=== PATIENT | female | born 1940 | race Two or more races ===

== ENCOUNTER 2023-03-04 17:56 | Inpatient (IN) | payer OTHER ==
[2023-03-04] MEDS ORDERED: SODIUM CHLORIDE 2,381 ML IV ONE (19:54)
[2023-03-04] MEDS ORDERED: SODIUM CHLORIDE 0.9% 500 ML INFUS.BAG IV ONE (20:30)
[2023-03-04 21:14] LABS: VENOUS BASE EXCESS 4.3 mmol/L (-2-2); VENOUS O2 SATURATION 27.4 % (70-80); VENOUS PH 7.417 (7.310-7.410)
[2023-03-04 21:21] LABS: BASO % 0.2 % (0-2.0); HEMATOCRIT 35.5 % (32.4-45.2); HEMOGLOBIN 12.1 GM/dL (10.7-15.3); LYMPH % 4.6 % (8-40); MCH 29.9 pg (25.7-33.7); MCHC 34.1 g/dl (32.0-36.0); MEAN CELL VOLUME 87.5 fl (80-96); MEAN PLT VOLUME 8.1 fl (7.5-11.1); MONO % 6.2 % (3.8-10.2); PLATELET COUNT 462 10^3/uL (134-434); RBC 4.06 M/mm3 (3.60-5.2); RDW 14.5 % (11.6-15.6); WHITE BLOOD COUNT 22.3 K/mm3 (4.0-10.0)
[2023-03-04 21:27] LABS: INR 1.18 (0.83-1.09); PROTHROMBIN TIME (PATIENT) 13.7 SEC (9.7-13.0)
[2023-03-04] MEDS ORDERED: VANCOMYCIN 1,000 MG in DEXTROSE 5%-WATER - 250 ML IVPB ONE (21:28)
[2023-03-04] MEDS ORDERED: PIPERACILLIN/TAZOB 4.5 GM 4.5 GM in DEXTROSE 5%-WATER 100 ML IVPB ONE (21:28)
[2023-03-04 21:29] LABS: ACTIVATED PTT 24.6 SECONDS (25.2-36.5)
[2023-03-04 21:40] LABS: POTASSIUM 5.6 mmol/L (3.5-5.1)
[2023-03-04 21:42] LABS: CALCIUM 7.5 mg/dL (8.5-10.1)
[2023-03-04 21:43] LABS: ALBUMIN 2.1 g/dl (3.4-5.0); BLOOD UREA NITROGEN 22.8 mg/dL (7-18)
[2023-03-04 21:46] LABS: CREATININE 1.1 mg/dL (0.55-1.3)
[2023-03-04 21:47] LABS: BILIRUBIN,TOTAL 1.2 mg/dL (0.2-1); TOT PROT 5.8 g/dl (6.4-8.2)
[2023-03-04 21:49] LABS: EPI CELLS 36 /uL (0-25.1); HYALINE CASTS 5 /uL (0-3.1); PH,URINE 5.5 (5.0-8.0); URINE APPEARANCE CLEAR; URINE BACTERIA 6 /uL (0-1359); URINE BILIRUBIN NEGATIVE (NEGATIVE); URINE COLOR YELLOW; URINE GLUCOSE (UA) NEGATIVE (NEGATIVE); URINE KETONE TRACE (NEGATIVE); URINE LEUK ESTERASE NEGATIVE (NEGATIVE); URINE NITRITE NEGATIVE (NEGATIVE); URINE PROTEIN 2+ (NEGATIVE); URINE RBC 34 /uL (0-23.9); URINE WBC 15 /uL (0-25.8)
[2023-03-04 22:15] LABS: ANISOCYTOSIS 1+; MACROCYTOSIS 0; OVALOCYTE 1+
[2023-03-04] MEDS ORDERED: PIPERACILLIN/TAZOB 4.5 GM 4.5 GM/100 ML BAG IVPB ONE (22:47)
[2023-03-04] MEDS ORDERED: VANCOMYCIN 1 GRAM (PRE-DOCKED) 1,000 MG/250 ML BAG IVPB ONE (23:53)
[2023-03-05 02:45] LABS: CHLORIDE 104 mmol/L (98-107); POTASSIUM 4.9 mmol/L (3.5-5.1); SODIUM 136 mmol/L (136-145)
[2023-03-05 02:47] LABS: ANION GAP 8 mmol/L (4-13); BLOOD UREA NITROGEN 18.5 mg/dL (7-18); CO2 24 mmol/L (21-32); GLUCOSE,RANDOM 98 mg/dL (74-106)
[2023-03-05 02:50] LABS: CREATININE 0.8 mg/dL (0.55-1.3)
[2023-03-05 02:53] LABS: CALCIUM 6.9 mg/dL (8.5-10.1)
[2023-03-05] MEDS: CARBIDOPA/LEVODOPA 25/100 TABLET (FP) PO SCH ×4 (06:50→21:58)
[2023-03-05] MEDS: SODIUM CHLORIDE 1,000 ML IV SCH (06:50)
[2023-03-05] MEDS ORDERED: PATIENT'S OWN MEDICATION (NON-FORMULARY) (Linaclotide [Linzess] 145 MCG Capsule) PO SCH (07:00)
[2023-03-05] MEDS ORDERED: PIPERACILLIN/TAZOB 3.375 GM 3.375 GM in DEXTROSE 5%-WATER - 50 ML IVPB SCH ×2 (08:00→10:00)
[2023-03-05 08:37] LABS: HEMOGLOBIN 11.3 GM/dL (10.7-15.3); MCH 29.7 pg (25.7-33.7); MCHC 33.3 g/dl (32.0-36.0); MEAN CELL VOLUME 89.3 fl (80-96); MEAN PLT VOLUME 7.9 fl (7.5-11.1); PLATELET COUNT 437 10^3/uL (134-434); RBC 3.81 M/mm3 (3.60-5.2); RDW 14.1 % (11.6-15.6); WHITE BLOOD COUNT 21.3 K/mm3 (4.0-10.0)
[2023-03-05 08:46] LABS: POTASSIUM 4.1 mmol/L (3.5-5.1)
[2023-03-05 08:47] VITALS: BMI 20.1
[2023-03-05 08:58] LABS: ALBUMIN 1.9 g/dl (3.4-5.0); BLOOD UREA NITROGEN 17.2 mg/dL (7-18); CALCIUM 7.3 mg/dL (8.5-10.1); MAGNESIUM 2.6 mg/dL (1.8-2.4)
[2023-03-05 09:01] LABS: CREATININE 0.8 mg/dL (0.55-1.3); PHOSPHOROUS 2.7 mg/dL (2.5-4.9)
[2023-03-05 09:02] LABS: BILIRUBIN,DIRECT 0.7 mg/dL (0.0-0.2)
[2023-03-05 09:03] LABS: BILIRUBIN,TOTAL 1.6 mg/dL (0.2-1)
[2023-03-05] MEDS: OSELTAMIVIR PHOSPHATE 75 MG CAPSULE PO SCH ×2 (10:41→23:09)
[2023-03-05] MEDS: VANCOMYCIN/WATER FOR INJ (PEG) 1,000 MG/200 ML BAG IVPB SCH (13:45)
[2023-03-05] MEDS: ALBUTEROL SO4 2.5/IPRATROPIUM 0.5 INH SOL 3 ML VIAL.NEB. NEB SCH ×2 (15:21→20:22)
[2023-03-05] MEDS: methylPREDNISolone NA SUCC 40 MG/1 ML VIAL IVPUSH SCH (16:10)
[2023-03-05] MEDS: PIPERACILLIN/TAZOB 3.375 GM 3.375 GM in DEXTROSE 5%-WATER - 50 ML IVPB SCH (17:40)
[2023-03-05] MEDS: QUEtiapine FUMARATE 25 MG TABLET PO SCH (21:58)
[2023-03-05] MEDS: DONEPEZIL HCL 10 MG TABLET (FP) PO SCH ×2 (21:58→22:01)
[2023-03-06] MEDS: PIPERACILLIN/TAZOB 3.375 GM 3.375 GM in DEXTROSE 5%-WATER - 50 ML IVPB SCH ×3 (01:58→17:26)
[2023-03-06] MEDS: SODIUM CHLORIDE 1,000 ML IV SCH ×2 (02:02→18:39)
[2023-03-06] MEDS: VANCOMYCIN/WATER FOR INJ (PEG) 1,000 MG/200 ML BAG IVPB SCH ×2 (02:47→13:09)
[2023-03-06] MEDS: CARBIDOPA/LEVODOPA 25/100 TABLET (FP) PO SCH ×3 (05:35→21:30)
[2023-03-06] MEDS: ALBUTEROL SO4 2.5/IPRATROPIUM 0.5 INH SOL 3 ML VIAL.NEB. NEB SCH ×5 (07:40→19:53)
[2023-03-06] MEDS: methylPREDNISolone NA SUCC 40 MG/1 ML VIAL IVPUSH SCH (09:25)
[2023-03-06] MEDS: OSELTAMIVIR PHOSPHATE 75 MG CAPSULE PO SCH ×2 (09:27→21:30)
[2023-03-06 10:32] LABS: HEMATOCRIT 32.9 % (32.4-45.2); HEMOGLOBIN 10.7 GM/dL (10.7-15.3); MCH 29.2 pg (25.7-33.7); MCHC 32.6 g/dl (32.0-36.0); MEAN CELL VOLUME 89.5 fl (80-96); MEAN PLT VOLUME 7.7 fl (7.5-11.1); PLATELET COUNT 451 10^3/uL (134-434); RBC 3.67 M/mm3 (3.60-5.2); RDW 14.4 % (11.6-15.6); WHITE BLOOD COUNT 16.9 K/mm3 (4.0-10.0)
[2023-03-06 11:14] LABS: ANISOCYTOSIS 0; MACROCYTOSIS 0
[2023-03-06 12:11] LABS: CALCIUM 7.5 mg/dL (8.5-10.1)
[2023-03-06 12:12] LABS: ALBUMIN 1.7 g/dl (3.4-5.0); BLOOD UREA NITROGEN 19.1 mg/dL (7-18); MAGNESIUM 2.7 mg/dL (1.8-2.4)
[2023-03-06 12:14] LABS: BILIRUBIN,TOTAL 1.7 mg/dL (0.2-1); CREATININE 0.8 mg/dL (0.55-1.3); PHOSPHOROUS 2.8 mg/dL (2.5-4.9); TOT PROT 4.8 g/dl (6.4-8.2)
[2023-03-06] MEDS: DEXTROSE 5%-0.45% SALINE 1,000 ML IV SCH (18:36)
[2023-03-06] MEDS: DONEPEZIL HCL 10 MG TABLET (FP) PO SCH (21:30)
[2023-03-06] MEDS: QUEtiapine FUMARATE 25 MG TABLET PO SCH (21:30)
[2023-03-07] MEDS: PIPERACILLIN/TAZOB 3.375 GM 3.375 GM in DEXTROSE 5%-WATER - 50 ML IVPB SCH ×3 (01:21→17:18)
[2023-03-07] MEDS: VANCOMYCIN/WATER FOR INJ (PEG) 1,000 MG/200 ML BAG IVPB SCH ×2 (02:09→15:16)
[2023-03-07] MEDS: CARBIDOPA/LEVODOPA 25/100 TABLET (FP) PO SCH ×3 (06:29→22:41)
[2023-03-07] MEDS: ALBUTEROL SO4 2.5/IPRATROPIUM 0.5 INH SOL 3 ML VIAL.NEB. NEB SCH ×4 (07:25→21:03)
[2023-03-07] MEDS: OSELTAMIVIR PHOSPHATE 75 MG CAPSULE PO SCH ×2 (09:29→22:41)
[2023-03-07] MEDS: methylPREDNISolone NA SUCC 40 MG/1 ML VIAL IVPUSH SCH (09:29)
[2023-03-07] MEDS ORDERED: ALBUTEROL SO4 2.5/IPRATROPIUM 0.5 INH SOL 3 ML VIAL.NEB. NEB ONE (11:15)
[2023-03-07] MEDS ORDERED: methylPREDNISolone NA SUCC 40 MG/1 ML VIAL IVPUSH ONE (11:30)
[2023-03-07] MEDS ORDERED: HALOPERIDOL LACTATE 5 MG/ML IM ONE (11:30)
[2023-03-07 12:53] LABS: ALLENS TEST POSITIVE; ARTERIAL BLD GAS O2 SATURATION 95.6 % (95-98); ARTERIAL BLOOD GAS BASE EXCESS -0.6 mmol/L (-2-2); ARTERIAL BLOOD GAS PO2 70.9 mmHg (80-100); ARTERIAL BLOOD GAS pH 7.487 (7.350-7.450)
[2023-03-07 14:39] LABS: HEMATOCRIT 32.8 % (32.4-45.2); HEMOGLOBIN 10.9 GM/dL (10.7-15.3); MCH 29.3 pg (25.7-33.7); MCHC 33.2 g/dl (32.0-36.0); MEAN CELL VOLUME 88.3 fl (80-96); MEAN PLT VOLUME 7.4 fl (7.5-11.1); PLATELET COUNT 550 10^3/uL (134-434); RBC 3.72 M/mm3 (3.60-5.2); WHITE BLOOD COUNT 20.7 K/mm3 (4.0-10.0)
[2023-03-07 14:57] LABS: POTASSIUM 4.2 mmol/L (3.5-5.1)
[2023-03-07 14:59] LABS: CALCIUM 7.7 mg/dL (8.5-10.1)
[2023-03-07 15:00] LABS: ALBUMIN 1.8 g/dl (3.4-5.0); BLOOD UREA NITROGEN 22.3 mg/dL (7-18)
[2023-03-07 15:02] LABS: BILIRUBIN,DIRECT 0.7 mg/dL (0.0-0.2)
[2023-03-07 15:03] LABS: CREATININE 0.9 mg/dL (0.55-1.3)
[2023-03-07 15:13] LABS: ANISOCYTOSIS 2+; MACROCYTOSIS 0; OVALOCYTE 2+
[2023-03-08] MEDS: PIPERACILLIN/TAZOB 3.375 GM 3.375 GM in DEXTROSE 5%-WATER - 50 ML IVPB SCH ×3 (01:19→18:38)
[2023-03-08] MEDS: DEXTROSE 5%-0.45% SALINE 1,000 ML IV SCH (01:20)
[2023-03-08] MEDS: CARBIDOPA/LEVODOPA 25/100 TABLET (FP) PO SCH ×3 (06:17→21:57)
[2023-03-08] MEDS: ACETAMINOPHEN 650 MG/20.3 ML ORAL SOLUTION (CUPS) PO PRN (06:26)
[2023-03-08] MEDS: ALBUTEROL SO4 2.5/IPRATROPIUM 0.5 INH SOL 3 ML VIAL.NEB. NEB SCH ×4 (07:26→20:14)
[2023-03-08] MEDS: OSELTAMIVIR PHOSPHATE 75 MG CAPSULE PO SCH ×2 (09:26→21:57)
[2023-03-08] MEDS: methylPREDNISolone NA SUCC 40 MG/1 ML VIAL IVPUSH SCH (09:27)
[2023-03-08] MEDS: VANCOMYCIN/WATER FOR INJ (PEG) 1,000 MG/200 ML BAG IVPB SCH (11:27)
[2023-03-09] MEDS: PIPERACILLIN/TAZOB 3.375 GM 3.375 GM in DEXTROSE 5%-WATER - 50 ML IVPB SCH ×3 (02:41→18:01)
[2023-03-09] MEDS: ALBUTEROL SO4 2.5/IPRATROPIUM 0.5 INH SOL 3 ML VIAL.NEB. NEB SCH ×4 (08:51→20:37)
[2023-03-09 10:04] LABS: HEMATOCRIT 33.4 % (32.4-45.2); HEMOGLOBIN 11.1 GM/dL (10.7-15.3); MCH 29.4 pg (25.7-33.7); MCHC 33.1 g/dl (32.0-36.0); MEAN CELL VOLUME 88.9 fl (80-96); MEAN PLT VOLUME 7.4 fl (7.5-11.1); PLATELET COUNT 498 10^3/uL (134-434); RBC 3.76 M/mm3 (3.60-5.2)
[2023-03-09] MEDS: OSELTAMIVIR PHOSPHATE 75 MG CAPSULE PO SCH ×2 (10:08→21:55)
[2023-03-09] MEDS: methylPREDNISolone NA SUCC 40 MG/1 ML VIAL IVPUSH SCH (10:08)
[2023-03-09] MEDS: ENOXAPARIN NA (PORCINE) 40 MG/0.4 ML DISP.SYRIN SQ SCH (10:08)
[2023-03-09 10:33] LABS: POTASSIUM 4.2 mmol/L (3.5-5.1)
[2023-03-09 10:45] LABS: BLOOD UREA NITROGEN 22.3 mg/dL (7-18); CALCIUM 8.2 mg/dL (8.5-10.1)
[2023-03-09 10:48] LABS: CREATININE 0.8 mg/dL (0.55-1.3)
[2023-03-09 10:49] LABS: TOT PROT 5.1 g/dl (6.4-8.2)
[2023-03-09] MEDS: VANCOMYCIN/WATER FOR INJ (PEG) 1,000 MG/200 ML BAG IVPB SCH (10:58)
[2023-03-09 11:07] LABS: ERYTHROCYTE SEDIMENTATION RATE 87 mm/hr (0-30)
[2023-03-09 11:22] LABS: ANISOCYTOSIS 1+; MACROCYTOSIS 0
[2023-03-09] MEDS: CARBIDOPA/LEVODOPA 25/100 TABLET (FP) PO SCH (22:01)
[2023-03-10] MEDS: PIPERACILLIN/TAZOB 3.375 GM 3.375 GM in DEXTROSE 5%-WATER - 50 ML IVPB SCH ×3 (01:36→17:44)
[2023-03-10] MEDS: CARBIDOPA/LEVODOPA 25/100 TABLET (FP) PO SCH ×5 (06:10→22:03)
[2023-03-10] MEDS: ALBUTEROL SO4 2.5/IPRATROPIUM 0.5 INH SOL 3 ML VIAL.NEB. NEB SCH ×2 (07:50→11:35)
[2023-03-10] MEDS: methylPREDNISolone NA SUCC 40 MG/1 ML VIAL IVPUSH SCH (09:56)
[2023-03-10] MEDS: ENOXAPARIN NA (PORCINE) 40 MG/0.4 ML DISP.SYRIN SQ SCH (09:56)
[2023-03-10 10:24] LABS: HEMATOCRIT 35.8 % (32.4-45.2); MCH 29.5 pg (25.7-33.7); MCHC 33.5 g/dl (32.0-36.0); MEAN CELL VOLUME 88.1 fl (80-96); MEAN PLT VOLUME 7.3 fl (7.5-11.1); PLATELET COUNT 459 10^3/uL (134-434); RBC 4.06 M/mm3 (3.60-5.2); RDW 14.4 % (11.6-15.6); WHITE BLOOD COUNT 21.5 K/mm3 (4.0-10.0)
[2023-03-10 10:52] LABS: POTASSIUM 4.4 mmol/L (3.5-5.1)
[2023-03-10 11:21] LABS: ALBUMIN 2.2 g/dl (3.4-5.0); CREATININE 0.9 mg/dL (0.55-1.3)
[2023-03-10 11:22] LABS: BILIRUBIN,TOTAL 1.2 mg/dL (0.2-1); MAGNESIUM 2.4 mg/dL (1.8-2.4); TOT PROT 5.4 g/dl (6.4-8.2)
[2023-03-10 11:23] LABS: CALCIUM 8.3 mg/dL (8.5-10.1)
[2023-03-10 11:24] LABS: PHOSPHOROUS 2.4 mg/dL (2.5-4.9)
[2023-03-10 11:37] LABS: ERYTHROCYTE SEDIMENTATION RATE 23 mm/hr (0-30)
[2023-03-10 12:18] LABS: ANISOCYTOSIS 2+; MACROCYTOSIS 0; OVALOCYTE 1+
[2023-03-10] MEDS: VANCOMYCIN/WATER FOR INJ (PEG) 1,000 MG/200 ML BAG IVPB SCH (12:28)
[2023-03-11] MEDS: PIPERACILLIN/TAZOB 3.375 GM 3.375 GM in DEXTROSE 5%-WATER - 50 ML IVPB SCH ×3 (01:53→18:36)
[2023-03-11] MEDS: CARBIDOPA/LEVODOPA 25/100 TABLET (FP) PO SCH ×3 (05:38→21:45)
[2023-03-11] MEDS: ENOXAPARIN NA (PORCINE) 40 MG/0.4 ML DISP.SYRIN SQ SCH (09:55)
[2023-03-11] MEDS: methylPREDNISolone NA SUCC 40 MG/1 ML VIAL IVPUSH SCH (09:56)
[2023-03-11 10:05] LABS: HEMATOCRIT 35.8 % (32.4-45.2); MCH 29.9 pg (25.7-33.7); MCHC 33.6 g/dl (32.0-36.0); MEAN CELL VOLUME 88.9 fl (80-96); MEAN PLT VOLUME 7.9 fl (7.5-11.1); PLATELET COUNT 362 10^3/uL (134-434); RBC 4.02 M/mm3 (3.60-5.2); RDW 14.2 % (11.6-15.6)
[2023-03-11 10:22] LABS: POTASSIUM 4.3 mmol/L (3.5-5.1)
[2023-03-11 10:29] LABS: BLOOD UREA NITROGEN 22.8 mg/dL (7-18); MAGNESIUM 2.4 mg/dL (1.8-2.4)
[2023-03-11 10:32] LABS: CREATININE 0.8 mg/dL (0.55-1.3); PHOSPHOROUS 2.5 mg/dL (2.5-4.9)
[2023-03-11 10:33] LABS: TOT PROT 5.1 g/dl (6.4-8.2)
[2023-03-11 11:15] LABS: ANISOCYTOSIS 0; MACROCYTOSIS 0
[2023-03-11] MEDS: VANCOMYCIN/WATER FOR INJ (PEG) 1,000 MG/200 ML BAG IVPB SCH (12:52)
[2023-03-11] MEDS: ACETAMINOPHEN 650 MG/20.3 ML ORAL SOLUTION (CUPS) PO PRN (21:45)
[2023-03-12] MEDS: PIPERACILLIN/TAZOB 3.375 GM 3.375 GM in DEXTROSE 5%-WATER - 50 ML IVPB SCH ×3 (01:36→18:05)
[2023-03-12] MEDS: CARBIDOPA/LEVODOPA 25/100 TABLET (FP) PO SCH ×3 (05:52→21:29)
[2023-03-12 08:37] LABS: HEMATOCRIT 30.8 % (32.4-45.2); HEMOGLOBIN 10.4 GM/dL (10.7-15.3); MCHC 33.9 g/dl (32.0-36.0); MEAN CELL VOLUME 88.6 fl (80-96); MEAN PLT VOLUME 8.2 fl (7.5-11.1); PLATELET COUNT 244 10^3/uL (134-434); RBC 3.48 M/mm3 (3.60-5.2); RDW 14.3 % (11.6-15.6); WHITE BLOOD COUNT 17.7 K/mm3 (4.0-10.0)
[2023-03-12 08:46] LABS: BLOOD UREA NITROGEN 24.6 mg/dL (7-18)
[2023-03-12 08:47] LABS: ALBUMIN 1.8 g/dl (3.4-5.0); CALCIUM 7.6 mg/dL (8.5-10.1); MAGNESIUM 2.4 mg/dL (1.8-2.4)
[2023-03-12 08:49] LABS: PHOSPHOROUS 2.6 mg/dL (2.5-4.9)
[2023-03-12 08:50] LABS: CREATININE 0.8 mg/dL (0.55-1.3)
[2023-03-12 08:51] LABS: BILIRUBIN,TOTAL 0.8 mg/dL (0.2-1)
[2023-03-12 08:57] LABS: TOT PROT 4.4 g/dl (6.4-8.2)
[2023-03-12] MEDS ORDERED: predniSONE 20 MG TABLET (UD) PO SCH (11:15)
[2023-03-12 11:35] LABS: ANISOCYTOSIS 1+; MACROCYTOSIS 0
[2023-03-12] MEDS ORDERED: predniSONE 20 MG TABLET (UD) PO ONE (12:15)
[2023-03-12] MEDS: methylPREDNISolone NA SUCC 40 MG/1 ML VIAL IVPUSH SCH (12:23)
[2023-03-12] MEDS: ENOXAPARIN NA (PORCINE) 40 MG/0.4 ML DISP.SYRIN SQ SCH (12:35)
[2023-03-12] MEDS: VANCOMYCIN/WATER FOR INJ (PEG) 1,000 MG/200 ML BAG IVPB SCH (14:02)
[2023-03-12 20:19] VITALS: RESP 18
[2023-03-12] MEDS: ACETAMINOPHEN 650 MG/20.3 ML ORAL SOLUTION (CUPS) PO PRN (21:29)
[2023-03-13] MEDS: PIPERACILLIN/TAZOB 3.375 GM 3.375 GM in DEXTROSE 5%-WATER - 50 ML IVPB SCH ×2 (01:53→12:56)
[2023-03-13] MEDS: CARBIDOPA/LEVODOPA 25/100 TABLET (FP) PO SCH (06:31)
[2023-03-13] MEDS ORDERED: predniSONE 10 MG TABLET (UD) PO ONE (10:00)
[2023-03-13] MEDS: ENOXAPARIN NA (PORCINE) 40 MG/0.4 ML DISP.SYRIN SQ SCH (11:13)
[2023-03-13 11:23] VITALS: BP 123/65; PULSE 84; TEMP 98.6
[2023-03-13] MEDS: VANCOMYCIN/WATER FOR INJ (PEG) 1,000 MG/200 ML BAG IVPB SCH (12:55)
[2023-03-14] MEDS ORDERED: predniSONE 20 MG TABLET (UD) PO ONE (10:00)
[2023-03-15] MEDS ORDERED: predniSONE 10 MG TABLET (UD) PO ONE (10:00)
[2023-03-16] MEDS ORDERED: predniSONE 5 MG TABLET (UD) PO ONE (10:00)
== END 2023-03-13 15:06 | DRG 871 ==
LOC: JER 17:56 → JERBED 03-05 03:43 → J6S 03-05 05:23
PROVIDERS: ADMIT Internal Medicine; ATTEND Internal Medicine
DX: A41.89 Other specified sepsis (principal); E43 Unspecified severe protein-calorie malnutrition; G93.41 Metabolic encephalopathy; J12.9 Viral pneumonia, unspecified; J96.01 Acute respiratory failure with hypoxia; J98.11 Atelectasis; J10.1 Influenza due to other identified influenza virus with other respiratory manifestations; I10 Essential (primary) hypertension; G20.A1 Parkinson's disease without dyskinesia, without mention of fluctuations; R74.01 Elevation of levels of liver transaminase levels; I95.9 Hypotension, unspecified; R94.5 Abnormal results of liver function studies; D75.839 Thrombocytosis, unspecified; R13.10 Dysphagia, unspecified; F03.90 Unspecified dementia, unspecified severity, without behavioral disturbance, psychotic disturbance, mood disturbance, and anxiety; J98.01 Acute bronchospasm; Z68.20 Body mass index [BMI] 20.0-20.9, adult; E88.09 Other disorders of plasma-protein metabolism, not elsewhere classified; Z74.01 Bed confinement status
CPT/HCPCS: 0241U-QW; 36415; 36600; 70450-TC; 71045-TC-FY; 71275-TC; 72125-TC; 72170-TC-FY; 73552-TC-LT-FY; 73590-TC-LT-FY; 73610-TC-LT-FY; 73630-TC-LT; 74177-TC; 76705-TC; 80048; 80053; 80076; 81003; 82248; 82803; 83605; 83690; 83735; 84100; 84484; 85025; 85027; 85610; 85651; 85730; 86140; 87040; 87081; 87086; 87635; 87899; 93005; 93010; 94640; 97161-GP; 99291; 99292; G0480; Q9967